=== PATIENT | female | born 1945 | race Caucasian/White ===

== ENCOUNTER 2025-04-08 12:40 | Emergency (ER) | payer MEDICARE, SELFPAY ==
[2025-04-08 12:43] VITALS: BP 168/65
--- NOTE | 2025-04-08 14:27 | ED.SKININJ ---
HPI-Injury
<Paris Cunningham ADMINISTRATIVE SUPPORT TECHNICIAN - Last Filed: 04/08/25 20:31>
General
Chief Complaint: Ear Problem
Source: patient
Exam Limitations: none
Time Seen by Provider: 04/08/25 13:27
Nursing documentation reviewed up to this point in time: agreed with
History of Present Illness-Injury
Initial Injury comments:
The patient is a 79-year-old female on Eliquis for afib who reports awakening early yesterday morning with blood on her hair originating from her left ear. She cleaned it and noted that the blood was fresh, even present upon swabbing just inside the
ear with a cotton-tipped applicator. There has been no associated pain or previous ear stuffiness reported by the patient before the bleeding began. The issue persisted into today. The patient expressed concern about the unknown source of the
bleeding and feels 'fullness' in her head. Denies recent URI, sinus stuffiness. No trauma.
Past History
<Paris Cunningham, ADMINISTRATIVE SUPPORT TECHNICIAN - Last Filed: 04/08/25 20:31>
Past History
ED Past Medical History: Arrthythmia (afib on Eliquis), HTN, Hypercholesterolemia and NIDDM
ED Past Surgical History: Cardiac (aortic valve replacement) and Gynecological
Social History
Tobacco: Non-smoker
Alcohol: None
Personal:
Living: with family
Review of Systems
<Paris Cunningham, ADMINISTRATIVE SUPPORT TECHNICIAN - Last Filed: 04/08/25 20:31>
Review of Systems
Allergies reviewed?: Yes
All Other Systems: ROS reviewed and negative except as documented in HPI and ROS
Constitutional: Denies fever
EENT: Reports other (bleeding from left ear)
ABD/GI: Denies nausea or vomiting
Neurological: Denies dizzy, headache (head feels 'full'), weakness or numbness
Phy Exam
<Paris Cunningham, ADMINISTRATIVE SUPPORT TECHNICIAN - Last Filed: 04/08/25 20:31>
Physical Exam
Physical Exam:
GENERAL: No acute distress. A&Ox3.
CONSTITUTIONAL: Afebrile.
EYES: clear, conjunctivae normal
ENMT: moist mucus membranes, Pharynx nl. R TM normal. L TM obstructed with fresh blood, small area of maceration agains the ear drum, no significant bleeding, ear canal is clear.
RESPIRATORY: Regular respirations, nonlabored, lungs clear.
CARDIOVASCULAR: Regular rate and rhythm, no murmurs, no rubs.
GI: Soft, nontender, normal BS
MUSCULOSKELETAL: Moves with ease. Well perfused.
SKIN: Warm, dry, pink
PSYCH: Normal mood and affect. Well kept, interactive and appropriate
NEUROLOGIC: Awake, alert and oriented. No focal neurological deficits
Course
<Paris Cunningham NP - Last Filed: 04/08/25 20:31>
Orders/Labs/Results
Orders:
Orders
04/08/25 14:26
CT Head W/o Iv Contrast Urgent
Comment:
Reason For Exam: bleeding L ear, on Eliquis
Vital Signs
Initial and Last Documented VS:
Initial Vital Signs
Temp Pulse Resp BP Pulse Ox
98.6 F 66 16 168/65 95
04/08/25 12:43 04/08/25 12:43 04/08/25 12:43 04/08/25 12:43 04/08/25 12:43
Last Documented Vital Signs
Temp Pulse Resp BP Pulse Ox
98.6 F 66 16 168/65 95
04/08/25 12:43 04/08/25 12:43 04/08/25 12:43 04/08/25 12:43 04/08/25 14:27
<Raz Nobles MD - Last Filed: 04/08/25 14:40>
Orders/Labs/Results
Orders:
Orders
04/08/25 14:26
CT Head W/o Iv Contrast Urgent
Comment:
Reason For Exam: bleeding L ear, on Eliquis
Vital Signs
Initial and Last Documented VS:
Initial Vital Signs
Temp Pulse Resp BP Pulse Ox
98.6 F 66 16 168/65 95
04/08/25 12:43 04/08/25 12:43 04/08/25 12:43 04/08/25 12:43 04/08/25 12:43
Last Documented Vital Signs
Temp Pulse Resp BP Pulse Ox
98.6 F 66 16 168/65 95
04/08/25 12:43 04/08/25 12:43 04/08/25 12:43 04/08/25 12:43 04/08/25 14:27
<Paris Cunningham ADMINISTRATIVE SUPPORT TECHNICIAN - Last Filed: 04/08/25 20:31>
MDM/Problems Addressed
Differential Diagnosis Includes:
rupture TM, ear canal trauma, otitis media/externa, osteoma of canal, bleeding polyp, neoplasm of ear.
MDM/Problems Addressed:
The patient is a 79-year-old female on Eliquis for afib who reports awakening early yesterday morning with blood on her hair originating from her left ear. She cleaned it and noted that the blood was fresh, even present upon swabbing just inside the
ear with a cotton-tipped applicator. There has been no associated pain or previous ear stuffiness reported by the patient before the bleeding began. The issue persisted into today. The patient expressed concern about the unknown source of the
bleeding and feels 'fullness' in her head. Denies recent URI, sinus stuffiness. No trauma.
Most of the TM is obstructed with fresh blood, there is a small area of maceration seemingly on the TM
Due to patient being on Eliquis and feeling fullness in her head will obtain head CT
If that is negative, will put on antibiotic eardrops and have her follow-up with ENT
4:[address] radiology report read: IMPRESSION:
No acute intracranial abnormality noted. The mastoid air cells are clear. External auditory canals are patent and symmetric. No apparent middle ear opacity.
Rx for Cefdinir and Ofloxacin eye drops for her ear sent to her pharmacy
Referred to ENT
<Paris Cunningham ADMINISTRATIVE SUPPORT TECHNICIAN - Last Filed: 04/08/25 20:31>
*Pulse Oximetry
SaO2: 95
Oxygen Mode of Delivery: Room air
Patient hypoxic: not evaluated
*Critical Care Note
Total Time (30-74mins, 75-104mins- exclusive of procedures): Not Applicable
ED Attending Note
<Paris Cunningham ADMINISTRATIVE SUPPORT TECHNICIAN - Last Filed: 04/08/25 20:31>
-
Portions of this chart may have been created with voice recognition software.� Occasional wrong word or��sound alike� substitutions may have occurred due to the inherent limitations of voice recognition software.
<Raz Nobles MD - Last Filed: 04/08/25 14:40>
ED Attending Note
Patient seen and examined by attending physician: Yes
I performed the substantive portion of visit, reviewed & personally made and approve the management plan that is documented in note by myself or IFEANYI.: Yes
ED Attending Note:
79-year-old female nontraumatic nonpainful bleeding from the left ear since last evening. No headache patient is on thinners. No other complaints. No fever. Does describe some fullness in her head however
On exam patient is nontoxic in no distress. She is sitting in her chair nontoxic-appearing ambulated to the bed without difficulty. Neck is supple. Right TMs clear. Left with a layer of blood on the TM. Unable to visualize for perforation.
Canal within normal limits. No pinna swelling. No mastoid tenderness.
Bleeding from the left ear. Source unknown. To consider perforated eardrum, infection, mass. With the head pressure and anticoagulation we will get a head CT. Cover with topical antibiotics and oral antibiotics with ENT follow-up
Discharge Plan
Departure
Patient Disposition: Home (Routine Discharge)
Date of Disposition: 04/08/25
Time of Disposition: 16:02
Patient with high blood pressure during this ER visit?: No
Condition: Good
Discharge Problem:
Bleeding from left ear
Prescriptions:
New
ofloxacin 0.3 % drops
3 drp ophthalmic (eye) QID Qty: 5 0RF
Rx Instructions:
3 drops left EAR QID
Ordering eye drops to place in ear
cefdinir 300 mg capsule
300 mg PO BID Qty: 14 0RF
Referrals:
Fara Manzanares DO [Family Provider, Family Practice]
Clay Villa MD [Active, Otology] - Call in 1-3 days for appt
Activity Restrictions/Additional Instructions:
As we discussed, your head CT shows nothing worrisome.
I sent a prescription to your pharmacy for antibiotic eardrops and also antibiotic to take by mouth.
Call the ENT doctor Thursday morning and inform them we would like you to be seen same week
Interventions
Interventions:
*Risk Screen - Suicide Last Done: 04/08/25 12:43
*General Assessment Last Done: 04/08/25 14:25
*Neglect/Abuse Screening Last Done: 04/08/25 12:43
*ED- Fall Risk Assessment Last Done: 04/08/25 14:25
*ED COVID-19 Vaccine History Last Done: 04/08/25 14:25
*Nursing Disposition Last Done: 04/08/25 16:54
Discharge Date and Time
Discharge Date/Time: 04/08/25 16:55
Print Language: LITHUANIAN
== END 2025-04-08 16:55 | disposition home or self-care (01) ==
LOC: EMR 12:40
PROVIDERS: EMERGENCY PHYSICIAN Emergency Medicine; FAMILY PHYSICIAN Family Medicine
DX: H92.22 Otorrhagia, left ear (principal); I48.91 Unspecified atrial fibrillation; E11.9 Type 2 diabetes mellitus without complications; E78.00 Pure hypercholesterolemia, unspecified; I10 Essential (primary) hypertension; J45.909 Unspecified asthma, uncomplicated; Z95.2 Presence of prosthetic heart valve; Z79.01 Long term (current) use of anticoagulants; Z79.84 Long term (current) use of oral hypoglycemic drugs; Z85.3 Personal history of malignant neoplasm of breast; Z91.048 Other nonmedicinal substance allergy status
CPT/HCPCS: 99284; 70450